=== PATIENT | male | born 1975 | race Caucasian/White ===

== ENCOUNTER → 2016-08-06 | Outpatient (CLI) | payer BC ==
[2016-08-06 16:13] LABS: CH 30.4; CHCM 35.4; HCT 47.1 % (39.0-53.0); HDW 2.88; HGB 16.1 gm/dL (13.0-17.5); MCH 29.5 pg (25.0-35.0); MCHC 34.2 g/dL (31.0-37.0); MCV 86.3 fL (80.0-100.0); Mean Platelet Volume 7.7; RBC 5.46 m/uL (4.30-5.90); WBC 8.3 k/uL (3.8-10.6)
[2016-08-06 16:34] LABS: Prolactin 13.5 ng/mL (3.7-17.9)
[2016-08-06 16:48] LABS: Prostate Specific Antigen 3.46 ng/mL (0.00-4.00)
== END ==
LOC: LABWHC1 15:49
PROVIDERS: ATTEND Internal Medicine Endocrinology, Diabetes & Metabolism
DX: E29.1 Testicular hypofunction (principal)
CPT/HCPCS: 36415; 84146; 84153; 84403; 85027

== ENCOUNTER → 2018-06-26 | Outpatient (CLI) | payer BC | END | disposition home or self-care (01) | LOC: LABWHC1 13:20 | PROVIDERS: ATTEND Urology | DX: R97.20 Elevated prostate specific antigen [PSA] (principal) | CPT/HCPCS: 36415; 84153 ==

== ENCOUNTER → 2018-07-28 | Outpatient (CLI) | payer BC ==
[2018-07-28 16:41] LABS: HCT 46.3 % (39.0-53.0); MCH 28.8 pg (25.0-35.0); MCHC 34.5 g/dL (31.0-37.0); MCV 83.5 fL (80.0-100.0); Mean Platelet Volume 7.4; Platelet Count 178 k/uL (150-450); RBC 5.54 m/uL (4.30-5.90); RDW 12.7 % (11.5-15.5); WBC 7.2 k/uL (3.8-10.6)
== END | disposition home or self-care (01) ==
LOC: LABWHC1 15:59
PROVIDERS: ATTEND Internal Medicine Endocrinology, Diabetes & Metabolism
DX: E29.1 Testicular hypofunction (principal)
CPT/HCPCS: 36415; 84403; 85027

== ENCOUNTER → 2018-12-01 | Outpatient (CLI) | payer BC ==
[2018-12-01 10:20] LABS: HCT 46.6 % (39.0-53.0); HGB 16.2 gm/dL (13.0-17.5); MCH 29.7 pg (25.0-35.0); MCHC 34.7 g/dL (31.0-37.0); MCV 85.6 fL (80.0-100.0); Mean Platelet Volume 7.5; Platelet Count 175 k/uL (150-450); RBC 5.44 m/uL (4.30-5.90); RDW 13.1 % (11.5-15.5); WBC 7.3 k/uL (3.8-10.6)
== END | disposition home or self-care (01) ==
LOC: LABWHC1 08:56
PROVIDERS: ATTEND Internal Medicine Endocrinology, Diabetes & Metabolism
DX: E29.1 Testicular hypofunction (principal)
CPT/HCPCS: 36415; 84153; 84403; 85027

== ENCOUNTER → 2019-05-05 | Outpatient (CLI) | payer BC ==
[2019-05-05 09:21] LABS: HCT 49.8 % (39.0-53.0); MCH 29.2 pg (25.0-35.0); MCHC 34.2 g/dL (31.0-37.0); MCV 85.4 fL (80.0-100.0); Mean Platelet Volume 8.4; Platelet Count 183 k/uL (150-450); RBC 5.84 m/uL (4.30-5.90); RDW 12.8 % (11.5-15.5); WBC 7.1 k/uL (3.8-10.6)
== END | disposition home or self-care (01) ==
LOC: LABWHC1 08:25
PROVIDERS: ATTEND Internal Medicine Endocrinology, Diabetes & Metabolism
DX: E29.1 Testicular hypofunction (principal); R97.20 Elevated prostate specific antigen [PSA]
CPT/HCPCS: 36415; 84153; 84403; 85027

== ENCOUNTER → 2019-08-24 | Outpatient (CLI) | payer BC ==
[2019-08-24 11:22] LABS: HCT 47.1 % (39.0-53.0); HGB 16.1 gm/dL (13.0-17.5); MCH 29.3 pg (25.0-35.0); MCHC 34.1 g/dL (31.0-37.0); Mean Platelet Volume 9.2; Platelet Count 180 k/uL (150-450); RBC 5.48 m/uL (4.30-5.90); RDW 12.4 % (11.5-15.5); WBC 5.4 k/uL (3.8-10.6)
== END | disposition home or self-care (01) ==
LOC: LABWHC1 08:41
PROVIDERS: ATTEND Internal Medicine Endocrinology, Diabetes & Metabolism
DX: E29.1 Testicular hypofunction (principal); R97.20 Elevated prostate specific antigen [PSA]
CPT/HCPCS: 36415; 84153; 84403; 85027

== ENCOUNTER → 2020-02-10 | Outpatient (CLI) | payer BC ==
[2020-02-10 12:24] LABS: HCT 48.9 % (39.0-53.0); HGB 16.4 gm/dL (13.0-17.5); MCH 30.3 pg (25.0-35.0); MCHC 33.7 g/dL (31.0-37.0); Mean Platelet Volume 8.2; Platelet Count 206 k/uL (150-450); RBC 5.43 m/uL (4.30-5.90); RDW 12.7 % (11.5-15.5); WBC 8.3 k/uL (3.8-10.6)
[2020-02-10 21:37] LABS: Prostate Specific Antigen 4.4 ng/mL (0.0-2.5)
== END | disposition home or self-care (01) ==
LOC: LABWHC1 10:43
PROVIDERS: ATTEND Internal Medicine Endocrinology, Diabetes & Metabolism
DX: E29.1 Testicular hypofunction (principal)
CPT/HCPCS: 36415; 84153; 84403; 85027

== ENCOUNTER → 2020-07-01 | Outpatient (CLI) | payer BC ==
[2020-07-01 15:24] LABS: HCT 45.5 % (39.6-50.0); HGB 15.9 g/dL (13.0-17.0); MCH 29.6 pg (27.0-32.0); MCHC 34.9 g/dL (32.0-37.0); MCV 84.7 fL (80.0-97.0); Mean Platelet Volume 11.7 fL (9.5-12.2); Platelet Count 214 X 10*3/uL (140-440); RBC 5.37 X 10*6/uL (4.40-5.60); RDW 12.5 % (11.5-14.5); WBC 7.07 X 10*3/uL (4.50-10.00)
== END | disposition home or self-care (01) ==
LOC: LABWHC1 08:53
PROVIDERS: ATTEND Internal Medicine Endocrinology, Diabetes & Metabolism
DX: E29.1 Testicular hypofunction (principal)
CPT/HCPCS: 36415; 84403; 85027

== ENCOUNTER → 2020-11-07 | Outpatient (CLI) | payer BC ==
[2020-11-07 18:56] LABS: HCT 44.1 % (39.6-50.0); HGB 15.4 g/dL (13.0-17.0); MCH 29.9 pg (27.0-32.0); MCHC 34.9 g/dL (32.0-37.0); MCV 85.6 fL (80.0-97.0); Mean Platelet Volume 12.1 fL (9.5-12.2); Platelet Count 192 X 10*3/uL (140-440); RBC 5.15 X 10*6/uL (4.40-5.60); WBC 6.99 X 10*3/uL (4.50-10.00)
[2020-11-07 19:42] LABS: Prostate Specific Antigen 4.2 ng/mL (0.0-2.5)
== END | disposition home or self-care (01) ==
LOC: LABWHC1 13:26
PROVIDERS: ATTEND Internal Medicine Endocrinology, Diabetes & Metabolism
DX: E29.1 Testicular hypofunction (principal)
CPT/HCPCS: 36415; 84153; 84403; 85027

== ENCOUNTER → 2021-04-07 | Outpatient (CLI) | payer BC ==
[2021-04-07 15:01] LABS: HCT 46.7 % (39.6-50.0); HGB 16.3 g/dL (13.0-17.0); MCH 29.7 pg (27.0-32.0); MCHC 34.9 g/dL (32.0-37.0); MCV 85.1 fL (80.0-97.0); Mean Platelet Volume 11.3 fL (9.5-12.2); Platelet Count 214 X 10*3/uL (140-440); RBC 5.49 X 10*6/uL (4.40-5.60); RDW 11.9 % (11.5-14.5); WBC 7.66 X 10*3/uL (4.50-10.00)
== END | disposition home or self-care (01) ==
LOC: LABWHC1 09:21
PROVIDERS: ATTEND Internal Medicine Endocrinology, Diabetes & Metabolism
DX: E29.1 Testicular hypofunction (principal)
CPT/HCPCS: 36415; 84403; 85027

== ENCOUNTER → 2021-08-31 | Outpatient (CLI) | payer BC ==
[2021-08-31 17:47] LABS: HCT 45.8 % (39.6-50.0); HGB 15.7 g/dL (13.0-17.0); MCH 29.4 pg (27.0-32.0); MCHC 34.3 g/dL (32.0-37.0); MCV 85.8 fL (80.0-97.0); Mean Platelet Volume 11.8 fL (9.5-12.2); NRBC Per 100 WBC 0 /100 WBCS (0.0-0.0); Platelet Count 193 X 10*3/uL (140-440); RBC 5.34 X 10*6/uL (4.40-5.60); RDW 12.5 % (11.5-14.5); WBC 6.77 X 10*3/uL (4.50-10.00)
[2021-08-31 18:06] LABS: Prostate Specific Antigen 4.1 ng/mL (0.00-2.50)
== END | disposition home or self-care (01) ==
LOC: LABWHC1 11:32
PROVIDERS: ATTEND Internal Medicine Endocrinology, Diabetes & Metabolism
DX: E29.1 Testicular hypofunction (principal)
CPT/HCPCS: 36415; 84153; 84403; 85027

== ENCOUNTER → 2022-01-03 | Outpatient (CLI) | payer BC ==
[2022-01-03 17:58] LABS: HCT 45.6 % (39.6-50.0); HGB 15.9 g/dL (13.0-17.0); MCH 29.8 pg (27.0-32.0); MCHC 34.9 g/dL (32.0-37.0); MCV 85.6 fL (80.0-97.0); Mean Platelet Volume 11.9 fL (9.5-12.2); NRBC Per 100 WBC 0 /100 WBCS (0.0-0.0); Platelet Count 162 X 10*3/uL (140-440); RBC 5.33 X 10*6/uL (4.40-5.60); RDW 12.4 % (11.5-14.5); WBC 7.01 X 10*3/uL (4.50-10.00)
[2022-01-03 20:12] LABS: Prostate Specific Antigen 5.1 ng/mL (0.00-2.50)
== END | disposition home or self-care (01) ==
LOC: LABWHC1 14:31
PROVIDERS: ATTEND Internal Medicine Endocrinology, Diabetes & Metabolism
DX: E29.1 Testicular hypofunction (principal)
CPT/HCPCS: 36415; 84153; 84403; 85027

== ENCOUNTER → 2022-05-17 | Outpatient (CLI) | payer BC ==
[2022-05-17 11:27] LABS: Prostate Specific Antigen 4.2 ng/mL (0.00-2.50)
[2022-05-17 11:37] LABS: HCT 46.4 % (39.6-50.0); HGB 16.4 g/dL (13.0-17.0); MCH 30.4 pg (27.0-32.0); MCHC 35.3 g/dL (32.0-37.0); MCV 86.1 fL (80.0-97.0); Mean Platelet Volume 10.6 fL (9.5-12.2); NRBC Per 100 WBC 0 /100 WBCS (0.0-0.0); Platelet Count 192 X 10*3/uL (140-440); RBC 5.39 X 10*6/uL (4.40-5.60); RDW 12.2 % (11.5-14.5); WBC 5.96 X 10*3/uL (4.50-10.00)
== END | disposition home or self-care (01) ==
LOC: LABWHC1 07:32
PROVIDERS: ATTEND Internal Medicine Endocrinology, Diabetes & Metabolism
DX: E29.1 Testicular hypofunction (principal)
CPT/HCPCS: 36415; 84153; 84403; 85027

== ENCOUNTER → 2022-09-06 | Outpatient (CLI) | payer BC ==
[2022-09-06 11:09] LABS: HCT 46.2 % (39.6-50.0); HGB 16.2 g/dL (13.0-17.0); MCH 29.7 pg (27.0-32.0); MCHC 35.1 g/dL (32.0-37.0); MCV 84.6 fL (80.0-97.0); Mean Platelet Volume 11.2 fL (9.5-12.2); NRBC Per 100 WBC 0 /100 WBCS (0.0-0.0); Platelet Count 172 X 10*3/uL (140-440); RBC 5.46 X 10*6/uL (4.40-5.60); RDW 12.2 % (11.5-14.5); WBC 8.03 X 10*3/uL (4.50-10.00)
[2022-09-06 11:23] LABS: Prostate Specific Antigen 4.1 ng/mL (0.00-2.50)
== END | disposition home or self-care (01) ==
LOC: LABWHC1 07:12
PROVIDERS: ATTEND Internal Medicine Endocrinology, Diabetes & Metabolism
DX: E29.1 Testicular hypofunction (principal)
CPT/HCPCS: 36415; 84153; 84403; 85027

== ENCOUNTER → 2023-03-15 | Outpatient (CLI) | payer BC ==
[2023-03-15 16:19] LABS: HCT 46.6 % (39.6-50.0); HGB 16.5 g/dL (13.0-17.0); MCH 29.9 pg (27.0-32.0); MCHC 35.4 g/dL (32.0-37.0); MCV 84.6 FL (80.0-97.0); Mean Platelet Volume 10.9 FL (9.5-12.2); NRBC Per 100 WBC 0 X 10*3/uL (0.00-0.01); Platelet Count 198 X 10*3/uL (140-440); RBC 5.51 X 10*6/uL (4.40-5.60); RDW 12.5 % (11.5-14.5); WBC 11.92 X 10*3/uL (4.50-10.00)
[2023-03-15 16:33] LABS: Prostate Specific Antigen 4.67 ng/mL (0.000-2.500)
== END | disposition home or self-care (01) ==
LOC: LABWHC1 10:48
PROVIDERS: ATTEND Internal Medicine Endocrinology, Diabetes & Metabolism
DX: E29.1 Testicular hypofunction (principal)
CPT/HCPCS: 36415; 84153; 84403; 85027

== ENCOUNTER → 2023-10-23 | Outpatient (CLI) | payer BC ==
[2023-10-23 10:50] LABS: HCT 45.2 % (39.0-53.0); HGB 15.8 gm/dL (13.0-17.5); MCH 30.1 pg (25.0-35.0); MCV 85.9 fL (80.0-100.0); Mean Platelet Volume 8.7; Platelet Count 150 k/uL (150-450); RBC 5.27 m/uL (4.30-5.90); RDW 12.9 % (11.5-15.5); WBC 5.5 k/uL (3.8-10.6)
[2023-10-23 15:49] LABS: Prostate Specific Antigen 3.9 ng/mL (0.000-2.500)
== END | disposition home or self-care (01) ==
LOC: LABWHC1 09:44
PROVIDERS: ATTEND Internal Medicine Endocrinology, Diabetes & Metabolism
DX: E29.1 Testicular hypofunction (principal)
CPT/HCPCS: 36415; 84153; 84403; 85027

== ENCOUNTER → 2024-07-06 | Outpatient (CLI) | payer BC ==
[2024-07-06 15:15] LABS: HCT 48.1 % (39.6-50.0); HGB 16.9 g/dL (13.0-17.0); MCH 29.4 pg (27.0-32.0); MCHC 35.1 g/dL (32.0-37.0); MCV 83.8 FL (80.0-97.0); Mean Platelet Volume 12.4 FL (9.5-12.2); NRBC Per 100 WBC 0 X 10*3/uL (0.00-0.01); Platelet Count 184 X 10*3/uL (140-440); RBC 5.74 X 10*6/uL (4.40-5.60); RDW 12.1 % (11.5-14.5); WBC 5.42 X 10*3/uL (4.50-10.00)
[2024-07-06 15:45] LABS: Prostate Specific Antigen 6.52 ng/mL (0.000-2.500)
== END | disposition home or self-care (01) ==
LOC: LABWHC1 10:16
PROVIDERS: ATTEND Internal Medicine Endocrinology, Diabetes & Metabolism
DX: E29.1 Testicular hypofunction (principal)
CPT/HCPCS: 36415; 84153; 84403; 85027

== ENCOUNTER → 2024-09-04 | Outpatient (CLI) | payer BC | END | disposition home or self-care (01) | LOC: LABWHC1 12:33 | PROVIDERS: ATTEND Internal Medicine Endocrinology, Diabetes & Metabolism | DX: E29.1 Testicular hypofunction (principal) | CPT/HCPCS: 36415; 84153 ==